=== PATIENT | male | born 1950 | race Two or more races ===

== ENCOUNTER 2018-05-18 15:13 | Outpatient (CLI) | payer OTHER ==
[~2018-05-18] VITALS: Ht 170.2 cm; Wt 88.5 kg
== END 2018-05-18 15:30 | disposition home or self-care (01) ==
LOC: OFIC 805 15:13
DX: H61.22 Impacted cerumen, left ear (principal); H93.8X9 Other specified disorders of ear, unspecified ear

== ENCOUNTER → 2024-07-01 | Emergency (ER) | payer OTHER ==
[~2024-07-01] VITALS: Ht 167.6 cm; Wt 97.5 kg
[~2024-07-01] MED LIST: CEFTRIAXONE SODIUM 1,000 MG VIAL IM ONE; CEFTRIAXONE SODIUM 1,000 MG VIAL ONE; DIABETIC TUSSI118 M3 PO; IPRATROPIU0.2 MG/1 M IH; LEVOFLOXACIN750 MG PO; LIDOCAINE HCL 1% 10ML VIAL ONE; PULMICORT1 MG/2 ML IH; XOPENEX CO1.25 MG/0. IH
== END | disposition left against medical advice (07) ==
LOC: ER 12:55
DX: L02.212 Cutaneous abscess of back [any part, except buttock and flank] (principal)